=== PATIENT | female | born 1970 | race Caucasian/White ===

== ENCOUNTER 2021-11-18 00:35 | Emergency (ER) | payer MEDICAID, MEDICARE ==
[~2021-11-18] VITALS: Ht 175.3 cm; Wt 77.1 kg
[2021-11-18 00:51] VITALS: BP_SYST 124
[2021-11-18] MEDS ORDERED: cephALEXin 500 MG CAPSULE PO ONE (01:30)
[2021-11-18] MEDS ORDERED: SULFAMETHOXAZOLE/TRIMETHOPR DS 1 TABLET PO ONE (01:30)
[2021-11-18] MEDS ORDERED: DIPH-TET-PERTUS Vaccine 0.5 ML VIAL (ADACEL) I.M. ONE (01:30)
[2021-11-18] MEDS ORDERED: HYDROcodone/ACETAMIN 5-325 MG TAB (NORCO/ VICODIN) PO ONE (01:30)
[2021-11-18] MEDS ORDERED: SULF1TAB48 PO (01:33)
[2021-11-18] MEDS ORDERED: IBUP-1971 PO (01:33)
[2021-11-18] MEDS ORDERED: CEPH-548 PO (01:33)
[2021-11-18] MEDS ORDERED: SILV20CR13 TP (01:57)
[2021-11-18 02:36] VITALS: BP_SYST 124
== END 2021-11-18 02:36 | disposition home or self-care (01) ==
LOC: SED 00:35
DX: L02.415 Cutaneous abscess of right lower limb (principal)
CPT/HCPCS: 90715; 99283; 99284

== ENCOUNTER 2023-06-10 01:45 | Emergency (ER) | payer MEDICAID ==
[~2023-06-10] VITALS: Ht 175.3 cm; Wt 79.4 kg
[~2023-06-10 01:45] MED LIST: CEPH-548 PO; IBUP-1971 PO; SILV20CR13 TP; SULF1TAB48 PO
[2023-06-10 01:55] VITALS: BP_SYST 148; PULSE 102; RESP 18; TEMP 98; O2SAT 96
[2023-06-10] MEDS ORDERED: DIPHTH,PERTUSS(ACELL),TET VAC 0.5 ML VIAL (Tdap) I.M. ONE (03:45)
[2023-06-10] MEDS ORDERED: ceFAZolin SODIUM 2 GM VIAL IM ONE (03:45)
[2023-06-10] MEDS ORDERED: CEPH-548 PO (03:50)
[2023-06-10] MEDS ORDERED: ceFAZolin SODIUM 1 GM VIAL ONE (03:52)
[2023-06-10] MEDS ORDERED: BACITRACIN 1 GM OINT TP ONE (04:00)
[2023-06-10 04:19] VITALS: BP_SYST 145; PULSE 98; RESP 18; TEMP 98; O2SAT 97
== END 2023-06-10 04:19 | disposition home or self-care (01) ==
LOC: SED 01:45
DX: L03.113 Cellulitis of right upper limb (principal); M79.621 Pain in right upper arm; Z79.899 Other long term (current) drug therapy
CPT/HCPCS: 99291; 90715; 96372; 90471; J0690; 99284

== ENCOUNTER 2024-02-29 13:20 | Emergency (ER) | payer MEDICAID ==
[~2024-02-29] VITALS: Ht 175.3 cm; Wt 79.4 kg
[~2024-02-29 13:20] MED LIST changes: +NABU-140 PO
[2024-02-29 13:23] VITALS: BP_SYST 124; PULSE 88; RESP 16; TEMP 98.5; O2SAT 95
[2024-02-29 14:47] LABS: BILIRUBIN,URINE NEGATIVE (NEGATIVE); BLOOD, URINE NEGATIVE (NEGATIVE); COLOR,URINE YELLOW (YELLOW); GLUCOSE,URINE NEGATIVE (NEGATIVE); KETONES,URINE NEGATIVE (NEGATIVE); LEUKOCYTE ESTERASE ,URINE NEGATIVE (NEGATIVE); NITRITE, URINE NEGATIVE (NEGATIVE); PROTEIN URINE NEGATIVE (NEGATIVE)
[2024-02-29 14:56] LABS: BACTERIA,URINE FEW /HPF (None Seen); CLARITY/URINE HAZY (CLEAR); RBC,URINE NONE SEEN /HPF (0-3); URINE AMORPHOUS PHOSPHATES 2+ /HPF (None Seen); WBC,URINE 0-3 /HPF (0-3)
[2024-02-29 14:57] LABS: MUCUS,URINE None Seen /LPF (None Seen)
[2024-02-29 15:14] LABS: BASOPHILS % (AUTO) 0.5 % (0.0-2.0); EOSINOPHILS # (AUTO) 0.1 K/uL (0.0-0.4); HEMATOCRIT 39.1 % (36-48); HEMOGLOBIN 13.7 g/dL (12.0-16.0); LYMPHOCYTES # (AUTO) 1.9 K/uL (1.0-5.5); MEAN CORPUSCULAR HEMOGLOBIN 32 pg (27-31); MEAN CORPUSCULAR HGB CONC 35 % (32-36); MEAN CORPUSCULAR VOLUME 90 fL (79.0-98.0); MONOCYTES # (AUTO) 0.5 K/uL (0.0-1.0); MONOCYTES % (AUTO) 10.4 % (1.7-9.3); NEUTROPHILS % (AUTO) 44.1 % (40.0-70.0); PLATELET COUNT (AUTO) 118 K/uL (130-430); RED BLOOD CELL COUNT(AUTO) 4.34 MIL/uL (4.2-6.2); RED CELL DISTRIBUTION WIDTH 12.5 % (9.0-15.0); WHITE BLOOD COUNT (AUTO) 4.6 K/uL (4.8-10.8)
[2024-02-29 15:21] LABS: INR 1.1 (0.8-1.2); PROTHROMBIN TIME 11.2 SECS (9.5-12.5)
[2024-02-29 15:30] LABS: ALANINE AMINOTRANSFERASE 52 U/L (12-78); ALBUMIN 3.3 g/dL (3.4-4.8); AMYLASE 65 U/L (0-100); ANION GAP 7 (5-15); ASPARTATE AMINOTRANSFERASE 57 U/L (10-37); BILIRUBIN,DIRECT 0.2 mg/dL (0.0-0.3); CALCIUM 8.9 mg/dL (8.4-11.0); CARBON DIOXIDE 31 mmol/L (23-29); CHLORIDE 102 mmol/L (98-107); GFR AFRICAN AMERICAN 85 mL/min (>90); GLUCOSE 103 mg/dL (74-106); LACTATE DEHYDROGENASE 188 U/L (81-234); LIPASE 44 U/L (16-77); POTASSIUM 3.6 mmol/L (3.5-5.1); SODIUM SERUM 140 mmol/L (136-145); TOTAL BILIRUBIN 0.5 mg/dL (0.0-1.0); TOTAL PROTEIN, SERUM 7.2 g/dL (6.4-8.3); UREA NITROGEN, BLOOD 9 mg/dL (8-21)
[2024-02-29 15:31] LABS: ALCOHOL, BLOOD < 3 mg/dL (<10); GFR NON AFRICAN-AMERICAN 70 mL/min (>90)
[2024-02-29 18:10] VITALS: BP_SYST 141; PULSE 86; RESP 18; TEMP 98.5; O2SAT 99
== END 2024-02-29 18:10 | disposition home or self-care (01) ==
LOC: SED 13:20
DX: K74.60 Unspecified cirrhosis of liver (principal); Z79.899 Other long term (current) drug therapy; Z79.2 Long term (current) use of antibiotics
CPT/HCPCS: 99284; 74176; 80076; 80048; 81001; 82150; 83615; 83690; 85025; 85610; 85730; 36415; 81025; 83605; 82397; G0482; 81000; 81015